=== PATIENT | female | born 1975 | race Caucasian/White ===

== ENCOUNTER 2016-12-19 06:55 | Day surgery (SDC) | payer OTHER ==
[~2016-12-19] VITALS: Ht 157.5 cm; Wt 97.7 kg
[~2016-12-19 06:55] MED LIST: DILTIAZEM 24HR240 MG PO; HYDROCHLOROTHIA25 MG PO; K-DUR20 MEQ PO; VITAMIN D-3 401 EACH PO; ZESTRIL10 MG PO; ZOLOFT100 MG PO
[2016-12-19 07:37] VITALS: BP 121/83
[2016-12-19] MEDS ORDERED: PERCOCET 5/31 TABLET PO (09:36)
[2016-12-19] MEDS ORDERED: MOTRIN800 MG PO (09:36)
[2016-12-19 12:20] VITALS: BP 99/60
[2016-12-19 13:30] VITALS: BP 112/74
== END 2016-12-19 13:30 | disposition home or self-care (01) ==
LOC: SDC 06:55
DX: N93.8 Other specified abnormal uterine and vaginal bleeding (principal); N84.0 Polyp of corpus uteri; N85.4 Malposition of uterus; Z98.51 Tubal ligation status; R73.03 Prediabetes; I10 Essential (primary) hypertension; L94.0 Localized scleroderma [morphea]; Z68.41 Body mass index [BMI] 40.0-44.9, adult
CPT/HCPCS: 84702; 86850; 86900; 86901; 88305; J0131; J1100; J1885; J2250; J2405; J3010